=== PATIENT | female | born 1950 | race African-American/Black ===

== ENCOUNTER 2016-08-05 21:35 | Inpatient (IN) | payer MEDICARE, OTHER ==
[~2016-08-05] VITALS: Ht 165.1 cm; Wt 96.2 kg
[~2016-08-05 21:35] MED LIST: GLYB1TAB51 PO; LANTUSP SQ; LISI-363 PO; METO100T PO; NOVOLOGP2 SC
[2016-08-05 21:37] VITALS: BP 244/127; PULSE 106; RESP 16; TEMP 98.9; O2SAT 99
--- NOTE | 2016-08-05 22:40 | PD ---
Physical Exam Date Seen by Provider: Aug 05, 2016 Time Seen by Provider: 22:38 Narrative 65 yo female here for high blood sugars. BS was 482 and she forgot her insulin at home. She is visiting family here. States having neuropathy in legs 01/17 ongoing. No other symptoms. Vitals sign stable. Patient awaiting bed placement. Data Data Last Documented VS Vital Signs Date Time Temp Pulse Resp B/P Pulse Ox O2 Delivery O2 Flow Rate FiO2 08/05/16 21:37 98.9 106 16 244/127 99 Room Air [facility] Medical Record Reviewed: Yes Supervised Visit with HITESH: Gokul Us Aug 05, 2016 22:39
[2016-08-05] MEDS ORDERED: METO100T PO (22:54)
[2016-08-05] MEDS ORDERED: LISI-515 PO (22:54)
[2016-08-05] MEDS ORDERED: GLYB5TAB3 PO (22:54)
[2016-08-05] MEDS ORDERED: LANTUS2P SQ (22:54)
[2016-08-05] MEDS ORDERED: NOVOLOGP2 SQ (22:54)
[2016-08-05] MEDS ORDERED: hydrALAZINE HCL 20 MG/ML VIAL IV PUSH ONE (23:30)
[2016-08-05] MEDS ORDERED: SODIUM CHLOR 0.9% 1000 ML INJ 1,000 ML IV ONE (23:30)
[2016-08-05 23:51] LABS: BLOOD GAS VENOUS BASE EXCESS 10.2 mmol/L (-2-2); BLOOD GAS VENOUS HCO3 35 mmol/L (22-26); BLOOD GAS VENOUS O2 CONTENT 8.7 Vol % (9.0-17.0); BLOOD GAS VENOUS O2 HGB SAT 43 % (70-76); BLOOD GAS VENOUS PCO2 56 mmHg (44-48); BLOOD GAS VENOUS PO2 24 mmHg (35-40); BLOOD GAS VENOUS pH 7.41 (7.360-7.400); TEMP CORR TO 98.6
[2016-08-05 23:52] LABS: CRITICAL VALUE YES; DRAW SITE IV LINE; FIO2 21 %; OXYGEN DEVICE ROOM AIR; STAT YES
[2016-08-05 23:59] LABS: AUTOMATED NEUTROPHIL # 4.2 TH/MM3 (1.8-7.7); BASOPHIL # 0.1 TH/MM3 (0-0.2); EOSINOPHIL # 0.1 TH/MM3 (0-0.4); EOSINOPHIL % 0.9 % (0.0-4.0); HEMATOCRIT 41.2 % (35.0-46.0); HEMO FLAGS DIFF FINAL; LYMPH % 35.2 % (9.0-44.0); LYMPHOCYTE # 2.6 TH/MM3 (1.0-4.8); MEAN CELL VOLUME 88.1 FL (80.0-100.0); MEAN CORPUSCULAR HEMOGLOBIN 30.9 PG (27.0-34.0); MEAN CORPUSCULAR HGB CONC 35.1 % (32.0-36.0); MONO % 6.2 % (0.0-8.0); NEUT % 56.7 % (16.0-70.0); PLATELET COUNT 231 TH/MM3 (150-450); RED BLOOD COUNT 4.68 MIL/MM3 (4.00-5.30); RED CELL DISTRIBUTION WIDTH 14.2 % (11.6-17.2); WHITE BLOOD COUNT 7.4 TH/MM3 (4.0-11.0)
[2016-08-06] VITALS (14 sets, daily range): BP systolic 142–267; BP diastolic 71–133; PULSE 45–116; RESP 16–18; TEMP 97.9–98.1; O2SAT 96–100
[2016-08-06 00:04] LABS: BLOOD, URINE SMALL (NEG); GLUCOSE,URINE 1000 mg/dL (NEG); KETONE, URINE NEG (NEG); NITRITE,URINE NEG (NEG); PH, URINE 7.5 (5.0-8.5); SQUAMOUS EPITHELIAL CELL URINE <1 /hpf (0-5); URINE COLOR LIGHT-YELLOW (YELLW/STRAW)
[2016-08-06 00:06] LABS: COMMENT (UR) CULT NOT INDICATED; CULTURE IF INDICATED CULT NOT INDICATED
[2016-08-06 00:38] LABS: BETA-HYDROXYBUTYRATE 0.08 MMOL/L (0.00-0.39); BICARBONATE 36.1 MEQ/L (21.0-32.0)
[2016-08-06 00:46] LABS: POTASSIUM 2.4 MEQ/L (3.5-5.1)
[2016-08-06] MEDS ORDERED: POTASSIUM CHLOR 20 MEQ PREMIX 100 ML IV ONE (01:30)
[2016-08-06] MEDS ORDERED: POTASSIUM CHLORIDE 20 MEQ CONTROLLED RELEASE TAB PO ONE (01:30)
[2016-08-06] MEDS ORDERED: METOPROLOL TARTRATE 5 MG/5 ML VIAL IV PUSH ONE (04:15)
--- NOTE | 2016-08-06 05:22 | PD ---
HPI Chief Complaint: Diabetic Time Seen by Provider: 23:10 Travel History International Travel<30 days: No Contact w/Intl Traveler<30days: No Traveled to known affect area: No History of Present Illness HPI 65yo F with IDDM presents to the ED with c/o elevated blood glucose. States she left her insulin at her daughter's home in [place] and did not have it today so she check her glucose at home and it was in the 400s. Denies any fever , chest pain, sob, n/v, abdominal pain, focal weakness or numbness. PFSH Past Medical History Blood Disorders: No Cardiovascular Problems: Yes (HTN) Diabetes: Yes Patient Takes Glucophage: Yes (GLYBERIDE 2 MONTHS AGO) Diminished Hearing: Yes ([place]) Genitourinary: No Hypertension: Yes Immune Disorder: No Musculoskeletal: No Neurologic: Yes (DIABETIC NEUROPATHY) Reproductive: No Respiratory: No Immunizations Current: Yes Menopausal: Yes : 3 Miscarriage: 3 Past Surgical History Other Surgery: Yes (TENDON REPAIR TO BILAT WRISTS/ CATARACT) Social History Alcohol Use: No Tobacco Use: No (1984 1.5 PPD) Substance Use: No Allergies-Medications (Allergen,Severity, Reaction): Coded Allergies: Darvocet-N 100 (Verified Allergy, Unknown, 08/05/16) Reported Meds & Prescriptions Reported Meds & Active Scripts Active Reported Metoprolol Tartrate 100 Mg Tab 200 Mg PO DAILY Lisinopril 20 Mg Tab 20 Mg PO DAILY Lantus Inj (Insulin Glargine) 1,000 Unit/10 Ml Vial 30 Units SQ HS Novolog Inj (Insulin Aspart) 1,000 Unit/10 Ml Vial 0 SQ DIRECTED Sliding Scale as directed. Glyburide 5 Mg Tab 10 Mg PO BID Take with meals at the same time each day Review of Systems Except as stated in HPI: all other systems reviewed are Neg Physical Exam Narrative GENERAL: 65yo F not in distress. SKIN: Focused skin assessment warm/dry. HEAD: Atraumatic. Normocephalic. CARDIOVASCULAR: Regular rate and rhythm. No murmur appreciated. RESPIRATORY: No accessory muscle use. Clear to auscultation. Breath sounds equal bilaterally. GASTROINTESTINAL: Abdomen soft, non-tender, nondistended. MUSCULOSKELETAL: No obvious deformities. No clubbing. No cyanosis. No edema. NEUROLOGICAL: Awake and alert. No obvious cranial nerve deficits. Motor grossly within normal limits. Normal speech. PSYCHIATRIC: Appropriate mood and affect; insight and judgment normal. Data Data Last Documented VS Vital Signs Date Time Temp Pulse Resp B/P Pulse Ox O2 Delivery O2 Flow Rate FiO2 08/06/16 05:00 96 16 196/95 98 Room Air 08/05/16 21:37 98.9 Orders Complete Blood Count With Diff (08/05/16 23:26) Basic Metabolic Panel (Bmp) (08/05/16 23:26) Beta Hydroxybutyrate (Acetone) (08/05/16 23:26) Urinalysis - C+S If Indicated (08/05/16 23:26) Resp Blood Gas Venous (08/05/16 ) Sodium Chlor 0.9% 1000 Ml Inj (Ns 1000 M (08/05/16 23:30) Hydralazine Inj (Apresoline Inj) (08/05/16 23:30) Blood Gas Venous (Vbg) (08/05/16 23:34) Potassium Chloride (Kcl) (08/06/16 01:30) Potassium Chlor 20 Meq Premix (Kcl 20 Me (08/06/16 01:30) Potassium, Serum (K) (08/06/16 03:52) Metoprolol Tartrate Inj (Lopressor Inj) (08/06/16 04:15) Magnesium (Mg) (08/06/16 05:15) Admit Order (Ed Use Only) (08/06/16 05:17) Labs Laboratory Tests Test 08/05/16 08/05/16 08/06/16 23:40 23:42 04:00 White Blood Count 7.4 TH/MM3 Red Blood Count 4.68 MIL/MM3 Hemoglobin 14.5 GM/DL Hematocrit 41.2 % Mean Corpuscular Volume 88.1 FL Mean Corpuscular Hemoglobin 30.9 PG Mean Corpuscular Hemoglobin 35.1 % Concent Red Cell Distribution Width 14.2 % Platelet Count 231 TH/MM3 Mean Platelet Volume 9.0 FL Neutrophils (%) (Auto) 56.7 % Lymphocytes (%) (Auto) 35.2 % Monocytes (%) (Auto) 6.2 % Eosinophils (%) (Auto) 0.9 % Basophils (%) (Auto) 1.0 % Neutrophils # (Auto) 4.2 TH/MM3 Lymphocytes # (Auto) 2.6 TH/MM3 Monocytes # (Auto) 0.5 TH/MM3 Eosinophils # (Auto) 0.1 TH/MM3 Basophils # (Auto) 0.1 TH/MM3 CBC Comment DIFF FINAL Differential Comment Urine Color LIGHT-YELLOW Urine Turbidity CLEAR Urine pH 7.5 Urine Specific [place] 1.007 Urine Protein TRACE mg/dL Urine Glucose (UA) 1000 mg/dL Urine Ketones NEG mg/dL Urine Occult Blood SMALL Urine Nitrite NEG Urine Bilirubin NEG Urine Urobilinogen LESS THAN 2.0 MG/DL Urine Leukocyte Esterase NEG Urine RBC LESS THAN 1 /hpf Urine WBC LESS THAN 1 /hpf Urine Squamous Epithelial <1 /hpf Cells Microscopic Urinalysis Comment CULT NOT INDICATED Sodium Level 136 MEQ/L Potassium Level 2.4 MEQ/L 2.5 MEQ/L Chloride Level 92 MEQ/L Carbon Dioxide Level 36.1 MEQ/L Anion Gap 8 MEQ/L Blood Urea Nitrogen 18 MG/DL Creatinine 1.93 MG/DL Estimat Glomerular Filtration 32 ML/MIN Rate Random Glucose 314 MG/DL Calcium Level 9.1 MG/DL B-Hydroxybutyrate 0.08 MMOL/L Blood Gas Puncture Site IV LINE Blood Gas Patient Temperature 98.6 Venous Blood pH 7.41 Venous Blood Partial Pressure 56 mmHg CO2 Venous Blood Partial Pressure 24 mmHg O2 Venous Blood HCO3 35 mmol/L Venous Blood Oxygen Saturation 43 % Venous Blood Oxygen Content 8.7 Vol % Venous Blood Base Excess 10.2 mmol/L Oxygen Delivery Device ROOM AIR Blood Gas Inspired Oxygen 21 % Magnesium Level 1.5 MG/DL MDM Medical Decision Making Medical Screen Exam Complete: Yes Emergency Medical Condition: Yes Differential Diagnosis DKA vs. uncontrolled DM Narrative Course 65yo F with IDDM here with elevated glucose. Labs reviewed, no leukocytosis. Hypokalemia at 2.4. Replace with 60mEq KCl and 20mEq KCl IV. Glucose 314. No increased anion gap. Creatinine increased at 1.93 which is mildly increased from prior. Repeat K was only 2.5. At this point, I added magnesium level. I discussed with Liana MOLINA and admitted to Dr. Freeman's service. Pt was also hypertensive and had received hydralazine 10mg IV and lopressor 5mg IV. Diagnosis Primary Impression: Hypokalemia Admitting Information Admitting Physician Requests: Gertrudis Sofia DO Aug 06, 2016 05:22
[2016-08-06] MEDS ORDERED: POTASSIUM CHLORIDE 25 MEQ EFFERVESCENT TAB PO ONE ×2 (05:45)
[2016-08-06] MEDS ORDERED: SODIUM CHLORIDE 0.9% FLUSH 10 ML FLUSH IV FLUSH PRN ×2 (05:45→10:30)
[2016-08-06] MEDS ORDERED: NALOXONE HCL 0.4 MG/ML AMP IV PRN (05:45)
[2016-08-06] MEDS ORDERED: ONDANSETRON HCL 4 MG/2 ML VIAL IVP PRN (05:45)
[2016-08-06] MEDS ORDERED: ACETAMINOPHEN 325 MG TAB PO PRN ×2 (05:45→10:30)
[2016-08-06] MEDS ORDERED: DEXTROSE 50% IN WATER 50 ML VIAL(D50) IV PUSH PRN ×2 (05:45→14:45)
[2016-08-06] MEDS ORDERED: GLUCAGON 1 MG/ML VIAL OTHER PRN ×2 (05:45→14:45)
[2016-08-06] MEDS: SODIUM CHLOR 0.9% 1000 ML INJ 1,000 ML IV SCH ×2 (06:05→21:21)
[2016-08-06] MEDS ORDERED: SODIUM CHLORIDE 0.9% FLUSH 10 ML FLUSH IV FLUSH SCH (09:00)
[2016-08-06] MEDS: METOPROLOL TARTRATE 100 MG TAB PO SCH (09:03)
[2016-08-06] MEDS: cloNIDine HCL 0.1 MG TAB PO PRN ×2 (09:03→19:16)
[2016-08-06] MEDS: LISINOPRIL 20 MG TAB PO SCH (09:03)
[2016-08-06] MEDS ORDERED: POTASSIUM CHLORIDE 25 MEQ EFFERVESCENT TAB PO SCH (10:00)
[2016-08-06] MEDS ORDERED: ZOLPIDEM TARTRATE 5 MG TAB PO PRN (10:30)
--- NOTE | 2016-08-06 12:09 | MH ---
DATE OF ADMISSION: 08/06/2016 ATTENDING PHYSICIAN: Chelo Freeman MD. CHIEF COMPLAINT: Elevated blood sugar. HISTORY OF PRESENT ILLNESS: The patient is a 65-year-old -[place] female with a known history of insulin-dependent diabetes mellitus who presents to the emergency room with complaints of elevated blood glucose. As per the patient, she has been travelling from [place] and she left her insulin at her daughter's home and she did not take her insulin today and when she checked her glucose at home, it was 480 so she presented to the emergency room. The patient denies any fever, any chest pain, no shortness of breath, nausea or vomiting or diarrhea. No abdominal pain. No focal weakness or numbness. In the emergency room, the labs done showed a potassium of 2.4 and a random blood glucose of 314. Because of her low potassium, the patient has been admitted for further evaluation and management. PAST MEDICAL HISTORY: 1. Diabetes mellitus. 2. Hypertension. 3. Hyperlipidemia. 4. Neuropathy. PAST SURGICAL HISTORY: 1. Tendon repair to bilateral wrists. 2. Cataract surgery. SOCIAL HISTORY: Quit smoking in 1984; used to smoke 1.5 packs per day for about five to ten years. Denies any alcohol or substance use. FAMILY HISTORY: Significant for hypertension and unknown autoimmune disorder in the mother and cancer in the sister. ALLERGIES: 1. DARVOCET. CURRENT MEDICATIONS: 1. Metoprolol tartrate 200 milligrams p.o. daily. 2. Lisinopril 20 milligrams p.o. daily. 3. Lantus insulin 30 units subcutaneous at bedtime. 4. NovoLog insulin sliding scale. 5. Glyburide 10 milligrams p.o. twice a day. REVIEW OF SYSTEMS: GENERAL: No acute distress. CONSTITUTIONAL: No weakness. CARDIOVASCULAR: No chest pain or palpitations. RESPIRATORY: No shortness of breath or wheezing. GASTROINTESTINAL: No abdominal pain, nausea or vomiting or diarrhea. NEUROLOGIC: No cranial nerve deficits. PSYCHIATRIC: No depression or anxiety. ENDOCRINE: Positive for diabetes mellitus but denies any polyuria or polydipsia. PHYSICAL EXAMINATION: VITAL SIGNS: Blood pressure is 142/101, temperature is 98.9, pulse is 92, respirations are 16, pulse oximetry is 99% on room air. GENERAL: A 65-year-old -[place] female who is lying in bed in no acute distress. HEAD: Head is atraumatic and normocephalic. Pupils equal, round and reactive to light and accommodation. Extraocular movements are intact. Oral mucosa is moist. NECK: The neck is supple. No jugular venous distention. No lymphadenopathy. Trachea is midline. CARDIOVASCULAR: S1 and S2 heard. Regular rate and rhythm. No murmur. No gallop. RESPIRATORY: Lungs are clear to auscultation bilaterally. No rhonchi or wheezes. ABDOMEN: The abdomen is soft, nontender and nondistended. Bowel sounds heard in all four quadrants. MUSCULOSKELETAL: No cyanosis, congestion or edema. NEUROLOGICAL: Cranial nerves II through XII are grossly intact. The patient is awake and alert x4. PSYCHIATRIC: Appropriate mood and affect. DIAGNOSTIC STUDIES: Labs done showed a white blood cell count of 7.4, hemoglobin 14.5, hematocrit 41.2, platelets are 231,000. The urinalysis is clear. Sodium is 136, potassium 2.4, chloride is 92, bicarbonate is 36.1, BUN 18, creatinine 1.92, random blood glucose is 314. DIAGNOSTIC IMPRESSION: 1. Hyperglycemia. 2. Hypokalemia. 3. Chronic kidney disease stage III. 4. Hypertension. 5. Hyperlipidemia. 6. Neuropathy. 7. History of insulin-dependent diabetes mellitus. PLAN: 1. Will admit the patient under services of Dr. Freeman. 2. Will start the patient on continuous telemetry monitoring. 3. The patient has received 60 milliequivalents of potassium in the emergency room. The repeat potassium was 2.5. Will replace the potassium and monitor closely. 4. Will start the patient on insulin. 5. Will continue the home medications as appropriate. 6. Will monitor the blood pressure as well as blood glucose q a.c. and at bedtime. 7. GI prophylaxis with proton pump inhibitor. 8. DVT prophylaxis with heparin. 9. Monitor Labs/vitals closely. 10. Will monitor the patient closely during the hospital stay. Further management depends upon the hospital course. The patient has presented with severe hypokalemia and has received 60 milliequivalents of IV potassium in the emergency room and still the potassium is only 2.5. The patient will need close monitoring with continuous telemetry monitoring to rule out any cardiac abnormalities. Will need replacement of potassium and also further monitoring of magnesium as well as phosphorus levels. Will need close monitoring of her sugars. Meets an inpatient criteria. Needs an inpatient of minimum two midnights. CLEVE
[2016-08-06] MEDS: glyBURIDE 5 MG TAB PO SCH ×2 (12:13→21:11)
[2016-08-06] MEDS: HEPARIN SODIUM - SQ 10,000 UNITS/ML VIAL SQ SCH ×2 (12:14→23:00)
[2016-08-06] MEDS: DOCUSATE SODIUM 100 MG CAP PO SCH ×2 (12:21→21:11)
[2016-08-06 14:23] LABS: BICARBONATE 28.8 MEQ/L (21.0-32.0); POTASSIUM 3.9 MEQ/L (3.5-5.1)
[2016-08-06] MEDS: MEDIUM DOSE INSULIN NOVOLOG SUPPLEMENTAL SCALE SQ SCH ×2 (18:22→21:12)
[2016-08-06] MEDS ORDERED: METO200T3 PO (18:29)
[2016-08-06] MEDS ORDERED: ISOS60TA PO (18:29)
[2016-08-06] MEDS ORDERED: HYDR25TA5 PO (18:29)
[2016-08-06] MEDS ORDERED: AMLO10TA2 PO (18:29)
[2016-08-06] MEDS ORDERED: GABA300C5 PO (18:29)
[2016-08-06] MEDS ORDERED: LISI-515 PO (18:29)
[2016-08-06] MEDS: SODIUM CHLORIDE 0.9% FLUSH 10 ML FLUSH IV FLUSH SCH (21:00)
[2016-08-06] MEDS: PANTOPRAZOLE SOD 40 MG DELAYED RELEASE TAB PO SCH (21:11)
[2016-08-06] MEDS: INSULIN DETEMIR 100 UNITS/ML VIAL SQ SCH (21:12)
[2016-08-07] VITALS (8 sets, daily range): BP systolic 143–212; BP diastolic 71–105; PULSE 68–82; RESP 16–20; TEMP 97.9–98.4; O2SAT 96–99
[2016-08-07] MEDS: cloNIDine HCL 0.1 MG TAB PO PRN ×3 (01:23→22:00)
[2016-08-07] MEDS: MEDIUM DOSE INSULIN NOVOLOG SUPPLEMENTAL SCALE SQ SCH ×4 (06:05→22:00)
[2016-08-07 06:47] LABS: AUTOMATED NEUTROPHIL # 2.8 TH/MM3 (1.8-7.7); BASOPHIL % 0.7 % (0.0-2.0); EOSINOPHIL # 0.1 TH/MM3 (0-0.4); EOSINOPHIL % 1.4 % (0.0-4.0); HEMATOCRIT 33.7 % (35.0-46.0); HEMO FLAGS DIFF FINAL; LYMPH % 41.9 % (9.0-44.0); LYMPHOCYTE # 2.4 TH/MM3 (1.0-4.8); MEAN CORPUSCULAR HEMOGLOBIN 30.4 PG (27.0-34.0); MEAN CORPUSCULAR HGB CONC 34.2 % (32.0-36.0); MONO % 7.3 % (0.0-8.0); NEUT % 48.7 % (16.0-70.0); PLATELET COUNT 183 TH/MM3 (150-450); RED BLOOD COUNT 3.78 MIL/MM3 (4.00-5.30); RED CELL DISTRIBUTION WIDTH 14.1 % (11.6-17.2); WHITE BLOOD COUNT 5.8 TH/MM3 (4.0-11.0)
[2016-08-07 07:08] LABS: BICARBONATE 29.3 MEQ/L (21.0-32.0)
[2016-08-07 07:15] LABS: POTASSIUM 2.7 MEQ/L (3.5-5.1)
[2016-08-07] MEDS: DOCUSATE SODIUM 100 MG CAP PO SCH ×2 (09:00→21:00)
[2016-08-07] MEDS ORDERED: SODIUM CHLOR 0.9% IV ONE (09:00)
[2016-08-07] MEDS ORDERED: POTASSIUM CHLORIDE IV ONE (09:00)
[2016-08-07] MEDS: SODIUM CHLORIDE 0.9% FLUSH 10 ML FLUSH IV FLUSH SCH ×2 (09:00→21:00)
[2016-08-07] MEDS: PANTOPRAZOLE SOD 40 MG DELAYED RELEASE TAB PO SCH (09:16)
[2016-08-07] MEDS: glyBURIDE 5 MG TAB PO SCH ×2 (09:16→22:00)
[2016-08-07] MEDS: LISINOPRIL 20 MG TAB PO SCH (09:16)
[2016-08-07] MEDS: METOPROLOL TARTRATE 100 MG TAB PO SCH (09:16)
--- NOTE | 2016-08-07 09:46 | HHI.PR ---
Subjective Remarks 65yr old female seen and examined today. No CP/SOB/NVD. Has her home meds now: on HCTZ/amlodine along with metoprolol/lisinopril for BP but not any potassium supplements BP high. No CP/SOB/NVD/headache. Objective Objective Results - Vital Signs Date Time Temp Pulse Resp B/P Pulse Ox O2 Delivery O2 Flow Rate FiO2 08/07/16 09:01 97.9 82 16 212/105 99 Manual Cuff/Auscultation 08/07/16 04:00 98.0 70 20 169/81 96 08/07/16 00:00 98.1 78 18 170/90 96 08/06/16 21:00 78 08/06/16 20:00 98.1 82 17 177/83 97 08/06/16 18:59 83 08/06/16 16:45 82 18 180/83 100 08/06/16 12:25 97.9 45 18 157/71 96 I/O 08/06/16 08/06/16 08/06/16 08/07/16 08/07/16 08/07/16 07:00 15:00 23:00 07:00 15:00 23:00 Intake Total 480 ml Balance 480 ml Intake Oral 480 ml # Voids 2 Result Diagram: 08/07/16 0600 08/07/16 0600 Other Results Laboratory Tests Test 08/06/16 08/07/16 13:30 06:00 Sodium Level 140 139 Potassium Level 3.9 2.7 Chloride Level 101 102 Carbon Dioxide Level 28.8 29.3 Anion Gap 10 8 Blood Urea Nitrogen 14 21 Creatinine 1.65 1.77 Estimat Glomerular Filtration 38 35 Rate Random Glucose 247 242 Calcium Level 8.6 8.3 White Blood Count 5.8 Red Blood Count 3.78 Hemoglobin 11.5 Hematocrit 33.7 Mean Corpuscular Volume 89.0 Mean Corpuscular Hemoglobin 30.4 Mean Corpuscular Hemoglobin 34.2 Concent Red Cell Distribution Width 14.1 Platelet Count 183 Mean Platelet Volume 9.2 Neutrophils (%) (Auto) 48.7 Lymphocytes (%) (Auto) 41.9 Monocytes (%) (Auto) 7.3 Eosinophils (%) (Auto) 1.4 Basophils (%) (Auto) 0.7 Neutrophils # (Auto) 2.8 Lymphocytes # (Auto) 2.4 Monocytes # (Auto) 0.4 Eosinophils # (Auto) 0.1 Basophils # (Auto) 0.0 CBC Comment DIFF FINAL Differential Comment ROS General: No: Fatigue, Weakness, Other HEENT: No: Sore Throat, Dysphagia, Other Cardiac: No: Chest Pain, Edema, Palpitations, Other Pulmonary: No: Cough, SOB, Wheezing, Other GI: No: Abdominal Pain, BM, Diarrhea, N/V, Other /[employer]: No: Dysuria, Urgency, Other Neuro/MS: No: Lightheaded, Confusion, Other Psych: No: Anxiety, Depression, Other Skin: No: Itching, Rash, Other Physical Exam Physical Exam PHYSICAL EXAMINATION GENERAL: This is a well-developed, well-nourished female who appears to be in no acute distress. She is alert and awake. HEAD: Normocephalic without any lesion or mass noted. EYES: Perrla, Normal eye movement,. OROPHARYNGEAL: Oropharynx without erythema or edema. MOUTH/THROAT: Buccal mucosa is moist. NECK: Supple. CARDIAC: Regular rhythm, regular rate, S1 and S2 are heard. LUNGS: Clear to auscultation bilaterally. ABDOMEN: Soft, nontender, no organomegaly or masses. Bowel sounds are heard in all four quadrants. No rebound. No guarding. EXTREMITIES: No CCE. NEUROLOGICAL: Patient mood and affect appropriate. SKIN:Warm and moist PSYCH: Mood and affect appropriate A/P Assessment and Plan Assessment/plan: 1. Hyperglycemia. 2. Hypokalemia. 3. Chronic kidney disease stage III. 4. Hypertension. 5. Hyperlipidemia. 6. Neuropathy. 7. History of insulin-dependent diabetes mellitus. PLAN: On continuous telemetry. Replace potassium: 60meq IV . Recheck after replacement. FSBG qac/hs. Lantus/SSI. Restart HCTZ/amlodipine for HTN. Continue rest of home meds As appropriate. Monitor BP closely. GI prophylaxis with proton pump inhibitor. DVT prophylaxis with heparin. Will recheck potassium/BP later today: if wnl will consider dc to home. DW with patient/RN. Chelo Freeman MD Aug 07, 2016 09:46
[2016-08-07] MEDS: HYDROCHLOROTHIAZIDE 25 MG TAB PO SCH (10:50)
[2016-08-07] MEDS: HEPARIN SODIUM - SQ 10,000 UNITS/ML VIAL SQ SCH ×2 (11:00→22:01)
[2016-08-07] MEDS: INSULIN DETEMIR 100 UNITS/ML VIAL SQ SCH (22:00)
[2016-08-08] VITALS (10 sets, daily range): BP systolic 162–196; BP diastolic 79–96; PULSE 61–71; RESP 16–20; TEMP 97.1–98; O2SAT 96–100
[2016-08-08] MEDS: cloNIDine HCL 0.1 MG TAB PO PRN (04:14)
[2016-08-08] MEDS: MEDIUM DOSE INSULIN NOVOLOG SUPPLEMENTAL SCALE SQ SCH ×4 (06:18→21:47)
[2016-08-08] MEDS: METOPROLOL TARTRATE 100 MG TAB PO SCH (09:12)
[2016-08-08] MEDS: HYDROCHLOROTHIAZIDE 25 MG TAB PO SCH (09:12)
[2016-08-08] MEDS: DOCUSATE SODIUM 100 MG CAP PO SCH ×2 (09:12→21:44)
[2016-08-08] MEDS: glyBURIDE 5 MG TAB PO SCH ×2 (09:12→21:44)
[2016-08-08] MEDS: SODIUM CHLORIDE 0.9% FLUSH 10 ML FLUSH IV FLUSH SCH ×2 (09:12→21:45)
[2016-08-08] MEDS: PANTOPRAZOLE SOD 40 MG DELAYED RELEASE TAB PO SCH (09:12)
[2016-08-08] MEDS: LISINOPRIL 20 MG TAB PO SCH (09:12)
[2016-08-08] MEDS: HEPARIN SODIUM - SQ 10,000 UNITS/ML VIAL SQ SCH ×2 (11:00→21:48)
--- NOTE | 2016-08-08 12:40 | HHI.PR ---
Subjective Remarks Alert resting in bed Afebrile Appetite fair No family present (Destiny Hannah) Objective Objective Results - Vital Signs Date Time Temp Pulse Resp B/P Pulse Ox O2 Delivery O2 Flow Rate FiO2 08/08/16 10:10 61 08/08/16 09:10 97.1 69 16 171/80 100 08/08/16 04:10 97.7 69 20 186/86 98 08/08/16 00:53 98.0 68 18 178/86 99 08/07/16 20:11 98.4 71 18 193/93 96 08/07/16 20:00 71 08/07/16 15:50 97.9 76 18 143/73 98 08/07/16 15:44 68 I/O 08/07/16 08/07/16 08/07/16 08/08/16 08/08/16 08/08/16 07:00 15:00 23:00 07:00 15:00 23:00 Intake Total 480 ml 360 ml 1489 ml Balance 480 ml 360 ml 1489 ml Intake Oral 480 ml 360 ml 600 ml IV Total 889 ml # Voids 2 1 2 (Destiny Hannah) Result Diagram: 08/07/16 0600 08/07/16 1642 ROS General: Weakness (generalized), Other (10 point ROS done positives noted generalized weakness and occasional cough, BM 2 days ago otherwise systems negative or unremarkable) Cardiac: Other Pulmonary: Cough (occasional) (Destiny Hannah) Physical Exam Physical Exam PHYSICAL EXAMINATION GENERAL: This is a well-developed, well-nourished female who appears to be in no acute distress. She is alert and awake, HEAD: Normocephalic without any lesion or mass noted. Facial features appear symmetric. OROPHARYNGEAL: Oropharynx without erythema or edema. NECK: Supple. No nuchal rigidity or lymphadenopathy. Trachea midline without deviation. CARDIAC: Regular rhythm, regular rate, S1 and S2 are heard. LUNGS: Clear to auscultation bilaterally. no wheeze, no rhonchi ABDOMEN: Soft, nontender, no organomegaly or masses. Bowel sounds are heard in all four quadrants. EXTREMITIES: no edema. Pulses equal bilateral. NEUROLOGICAL: Patient mood and affect appropriate. No focal deficit SKIN:Warm and moist Objective Remarks No chest pain no shortness of breath (Destiny Hannah) A/P Assessment and Plan Assessment/plan: 1. Hyperglycemia. 2. Hypokalemia. 3. Chronic kidney disease stage III. 4. Hypertension. 5. Hyperlipidemia. 6. Neuropathy. 7. History of insulin-dependent diabetes mellitus. PLAN: Vital signs reviewed, afebrile, manual systolic blood pressure still ranging in the 180s Hypokalemia telemetry. Replace potassium: 60meq IV . , Infusion lasted until approximately 0600. Will recheck K level today, if less than 3.5, will supplement extra dose by mouth Recheck BMP in the morning Diabetes mellitus type 2 FSBG qac/hs. Lantus/SSI. Hypertension systolic uncontrolled, increased dose of clonidine 0.2 by mouth when necessary. Restart HCTZ/amlodipine for HTN. Continue rest of home meds As appropriate. GI prophylaxis with proton pump inhibitor. DVT prophylaxis with heparin. DW with patient/RN. Discussed with patient Discussed with Dr. Carcamo, seen on his behalf Discussed With: Nurse, Family (pt.), Other (dr. carcamo, seen on his behalf) ( Destiny Hannha) Assessment and Plan pt is seen & examined d/w PT d/w Destiny difficult to control BP suspect sec HTN d/t CKD r/o Hyperaldosteronism cont BB/CCB Inc dose ROHIT-I d/c HCTZ add Hydralazine prn Clonidine obtain renal consult replace Kcl/mag will f/u (Belem Carcamo MD) Destiny Hannah August 08, 2016 12:40 Belem Carcamo MD August 08, 2016 17:29
[2016-08-08] MEDS ORDERED: POTASSIUM CHLORIDE 25 MEQ EFFERVESCENT TAB PO ONE (12:45)
[2016-08-08] MEDS: cloNIDine HCL 0.2 MG TAB PO PRN (14:43)
[2016-08-08] MEDS ORDERED: POTASSIUM CHLORIDE 10 MEQ CONTROLLED RELEASE TAB PO ONE (17:30)
[2016-08-08] MEDS ORDERED: MAGNESIUM SULFATE 1 GM PREMIX 100 ML IV ONE (18:00)
--- NOTE | 2016-08-08 18:17 | PD.CONS ---
HPI Service Nephrology Consult Requested By Dr. Carcamo Reason for Consult Uncontrolled hypertension, hypokalemia, CKD Primary Care Physician Vicente Caban MD History of Present Illness 65 Year old Black female with diabetes, hypertension started in her 40's, she was out of her insulin and BG was 480 she came in found to have potassium of 2.4 with uncontrolled hypertension, she also has CKD with failing kidneys, she gives a strong family history of hypertension, her mother and sister has hypertension. She denies Abdominal pain, dizziness, sultana. Review of Systems Constitutional: COMPLAINS OF: Fatigue Past Family Social History Allergies: Coded Allergies: Darvocet-N 100 (Verified Allergy, Unknown, 08/05/16) Past Medical History DM Hypertension CKD Stage 3 Hypokalemia Past Surgical History Cataract Tendon release in both wrist Reported Medications Reported Meds & Active Scripts Active Reported Metoprolol Succinate ER 24 HR (Metoprolol Succinate) 200 Mg Tab 200 Mg PO DAILY Lisinopril 20 Mg Tab 20 Mg PO BID Isosorbide Mononitrate ER (Isosorbide Mononitrate) 60 Mg Tab 60 Mg PO DAILY Hydrochlorothiazide 25 Mg Tab 25 Mg PO DAILY Gabapentin 300 Mg Cap 300 Mg PO QID Amlodipine (Amlodipine Besylate) 10 Mg Tab 10 Mg PO DAILY Metoprolol Tartrate 100 Mg Tab 200 Mg PO DAILY Lisinopril 20 Mg Tab 20 Mg PO DAILY Lantus Inj (Insulin Glargine) 1,000 Unit/10 Ml Vial 30 Units SQ HS Novolog Inj (Insulin Aspart) 1,000 Unit/10 Ml Vial 0 SQ DIRECTED Sliding Scale as directed. Glyburide 5 Mg Tab 10 Mg PO BID Take with meals at the same time each day Active Ordered Medications Current Medications Medications (Trade) Dose Ordered Sig/Khushbu Route Start Time Stop Time Status Last Admin (Zofran Inj) 4 mg Q6H PRN IVP 08/06/16 05:45 (Narcan Inj) 0.4 mg UNSCH PRN IV 08/06/16 05:45 (Diabeta) 10 mg BID PO 08/06/16 09:00 08/08/16 09:12 (Lopressor) 200 mg DAILY PO 08/06/16 09:00 08/08/16 09:12 (NS Flush) 2 ml UNSCH PRN IV FLUSH 08/06/16 10:30 (NS Flush) 2 ml BID IV FLUSH 08/06/16 21:00 08/08/16 09:12 (Tylenol) 650 mg Q4H PRN PO 08/06/16 10:30 (Colace) 100 mg Q12HR PO 08/06/16 10:45 08/08/16 09:12 (Ambien) 5 mg HS PRN PO 08/06/16 10:30 (Heparin Inj) 5,000 units Q12H SQ 08/06/16 11:00 08/07/16 22:01 (Levemir Inj) 30 units HS SQ 08/06/16 21:00 08/07/16 22:00 (D50w (Vial) Inj) 25 ml UNSCH PRN IV PUSH 08/06/16 14:45 (Glucagon Inj) 1 mg UNSCH PRN OTHER 08/06/16 14:45 (Protonix) 40 mg DAILY PO 08/06/16 19:30 08/08/16 09:12 (Norvasc) 10 mg DAILY PO 08/07/16 10:00 08/08/16 09:12 (Catapres) 0.2 mg Q6H PRN PO 08/08/16 14:30 08/08/16 14:43 (Prinivil) 40 mg DAILY PO 08/09/16 09:00 Hydralazine HCl 25 mg 25 mg Q8HR PO 08/08/16 22:00 (Magnesium Sulfate 1 Gm Premix) 100 ml @ 100 mls/hr ONCE ONCE IV 08/08/16 18:00 08/08/16 18:59 Family History sister hypertensive, mother had Hypertension, Social History smoked long time ago denies ETOH Physical Exam Vital Signs Vital Signs Date Time Temp Pulse Resp B/P Pulse Ox O2 Delivery O2 Flow Rate FiO2 08/08/16 17:50 188/90 Automatic Cuff 08/08/16 17:39 98.0 71 20 190/92 96 08/08/16 13:09 186/90 08/08/16 12:53 68 20 196/96 99 08/08/16 10:10 61 08/08/16 09:10 97.1 69 16 171/80 100 08/08/16 04:10 97.7 69 20 186/86 98 08/08/16 00:53 98.0 68 18 178/86 99 08/07/16 20:11 98.4 71 18 193/93 96 08/07/16 20:00 71 Physical Exam GENERAL: Well-nourished, well-developed patient. SKIN: Warm and dry. HEAD: Normocephalic. EYES: No scleral icterus. No injection or drainage. NECK: Supple, trachea midline. No JVD or lymphadenopathy. CARDIOVASCULAR: Regular rate and rhythm without murmurs, gallops, or rubs. RESPIRATORY: Breath sounds equal bilaterally. No accessory muscle use. GASTROINTESTINAL: Abdomen soft, non-tender, nondistended. EXTREMITIES: No cyanosis, or edema. NEUROLOGICAL: Awake, alert, and oriented x 3. Non-focal. Result Diagram: 08/07/16 0600 08/07/16 1642 Assessment and Plan Problem List: (1) Hypokalemia Plan: This likely was result of Thiazide diuretic K was low and she was alkalotic I will do screening for Hyperaldosteronism Her K remains low, will check urine electrolytes Aldosterone, renin,Metanephrine add Aldactone in am low dose (2) CKD (chronic kidney disease) stage 3, GFR 30-59 ml/min Plan: US Kidneys was ordered (3) Diabetes Plan: monitor BG (4) Labile essential hypertension Plan: can adjust medications add spironolactone Problem Qualifiers (1) Diabetes: Rosie De León MD August 08, 2016 18:17
--- NOTE | 2016-08-08 19:16 | RADRPT ---
EXAM DATE/TIME: 08/08/2016 18:41 [facility] COMPARISON: No previous studies available for comparison. INDICATIONS : Increased BUN/creatinine. MEDICAL HISTORY : Arthritis. Diabetic neuropathy feet and hands. CVA. Syncope. Migraines. HTN. Dyspnea. GERD. Diabe jacob. SURGICAL HISTORY : Right cataract with lens placement. Tendon repair to bilateral wrists. ENCOUNTER: Initial ACUITY: 1 day PAIN SCORE: 0/10 LOCATION: Bilateral flank MEASUREMENTS: RIGHT KIDNEY: 9.8 x 5.1 x 5.2 cm LEFT KIDNEY: 11.2 x 5.8 x 6.3 cm FINDINGS: RIGHT KIDNEY: Slightly smaller than the left and has mild, patchy cortical thinning/scarring. LEFT KIDNEY: Renal cortex is normal in thickness and echotexture. No hydronephrosis, stone, or mass. BLADDER: Within normal limits given the degree of distension. Trace perihepatic ascites seen, nonspecific. CONCLUSION: 1. No evidence of obstructive uropathy or other acute abnormality. 2. Slightly small right kidney with patchy cortical thinning/scarring. Left kidney within normal limi ts. 3. Trace ascites, etiology uncertain. Jaden Monson MD on August 08, 2016 at 19:12 Board Certified Radiologist. This report was verified electronically.
[2016-08-08] MEDS: hydrALAZINE HCL 25 MG TAB PO SCH (21:44)
[2016-08-08] MEDS: INSULIN DETEMIR 100 UNITS/ML VIAL SQ SCH (21:48)
[2016-08-09] VITALS (8 sets, daily range): BP systolic 111–188; BP diastolic 58–91; PULSE 64–76; RESP 16–18; TEMP 96.1–97.2; O2SAT 96–100
[2016-08-09] MEDS: cloNIDine HCL 0.2 MG TAB PO PRN (00:18)
[2016-08-09] MEDS: hydrALAZINE HCL 25 MG TAB PO SCH ×3 (06:31→22:00)
[2016-08-09] MEDS: MEDIUM DOSE INSULIN NOVOLOG SUPPLEMENTAL SCALE SQ SCH ×4 (06:31→21:56)
[2016-08-09 08:55] LABS: BICARBONATE 31.7 MEQ/L (21.0-32.0); MAGNESIUM 2.2 MG/DL (1.5-2.5)
--- NOTE | 2016-08-09 08:55 | HHI.PR ---
Subjective Remarks Alert resting in bed Afebrile Appetite fair No family present (Destiny Hannah) Objective Objective Results - Vital Signs Date Time Temp Pulse Resp B/P Pulse Ox O2 Delivery O2 Flow Rate FiO2 08/09/16 08:30 96.4 65 16 132/79 100 08/09/16 03:30 96.1 64 16 164/79 98 08/09/16 00:00 96.6 67 16 188/91 99 08/08/16 21:13 99 21 08/08/16 20:00 97.8 70 18 162/79 100 08/08/16 18:49 Room Air 08/08/16 17:50 188/90 Automatic Cuff 08/08/16 17:39 98.0 71 20 190/92 96 08/08/16 13:09 186/90 08/08/16 12:53 68 20 196/96 99 08/08/16 10:10 61 08/08/16 09:10 97.1 69 16 171/80 100 I/O 08/08/16 08/08/16 08/08/16 08/09/16 08/09/16 08/09/16 07:00 15:00 23:00 07:00 15:00 23:00 Intake Total 1489 ml 960 ml 240 ml Balance 1489 ml 960 ml 240 ml Intake Oral 600 ml 960 ml 240 ml IV Total 889 ml # Voids 2 3 3 # Bowel Movements 0 0 (Destiny Hannah) Result Diagram: 08/07/16 0600 08/08/16 1820 Other Results Last Impressions Renal Ultrasound 08/08/16 0000 Signed Impressions: Service Date/Time: Monday, August 08, 2016 18:41 - CONCLUSION: 1. No evidence of obstructive uropathy or other acute abnormality. 2. Slightly small right kidney with patchy cortical thinning/scarring. Left kidney within normal limits. 3. Trace ascites, etiology uncertain. Jaden Monson MD (Destiny Hannah) ROS General: Other (10 point ROS done, systems reviewed for any positives otherwise systems unremarkable) GI: BM (1 since admission) Neuro/MS: Other (BP monitoring with new medications normal range no headache) ( Destiny Hannah) Physical Exam Physical Exam PHYSICAL EXAMINATION GENERAL: This is a well-developed, well-nourished female who appears to be in no acute distress. She is alert and awake, HEAD: Normocephalic without any lesion or mass noted. Facial features appear symmetric. OROPHARYNGEAL: Oropharynx without erythema or edema. NECK: Supple. No nuchal rigidity or lymphadenopathy. Trachea midline without deviation. CARDIAC: Regular rhythm, regular rate, S1 and S2 are heard. LUNGS: Clear to auscultation bilaterally, no acute shortness of breath ABDOMEN: Soft, nontender, no organomegaly or masses. Bowel sounds are heard in all four quadrants. No rebound. No guarding. EXTREMITIES: no edema. Pulses equal bilateral. NEUROLOGICAL: Patient mood and affect appropriate. No focal deficit SKIN:Warm and moist Objective Remarks I'm feeling okay today (Destiny Hannah) A/P Assessment and Plan Assessment/plan: 1. Hyperglycemia. 2. Hypokalemia. 3. Chronic kidney disease stage III. 4. Hypertension. 5. Hyperlipidemia. 6. Neuropathy. 7. History of insulin-dependent diabetes mellitus. PLAN: Vital signs reviewed, afebrile, BP monitoring trend with assistance of manual pressures too for accuracy Hypokalemia telemetry. Low again today on labs .Replace potassium: 60meq IV total. , And by mouth dose. Nephrology following patient now. Need review of persistent hypokalemia Recheck BMP in the am Diabetes mellitus type 2 FSBG qac/hs. Lantus/SSI. Hypertension systolic uncontrolled, increased dose of clonidine 0.2 by mouth when necessary. Restart HCTZ/amlodipine for HTN. Appreciate nephrology consult. Added spironolactone, systolic in the 130s this a.m. normal trends Chronic kidney disease stage III, appreciate nephrology input for BP and hypokalemia. Small right kidney noted on ultrasound. Will follow expert opinion on patient needs and discharge planning GI prophylaxis with proton pump inhibitor. DVT prophylaxis with heparin. DW with patient/RN. Discussed with patient Discussed with Dr. Carcamo, seen on his behalf Discussed With: Nurse, Family (pt.), Other (dr. carcamo, seen on his behalf) ( Destiny Hannah) Assessment and Plan pt is seen & examined d/w PT d/w destiny BP better K remained low renal input appreciated / Hormonal eval [p] agree w above will f/u (Belem Carcamo MD) Destiny Hannah August 09, 2016 08:55 Belem Carcamo MD August 09, 2016 13:27
[2016-08-09 09:02] LABS: POTASSIUM 2.6 MEQ/L (3.5-5.1)
[2016-08-09] MEDS ORDERED: POTASSIUM CHLOR 20 MEQ PREMIX 100 ML IV ONE (09:30)
--- NOTE | 2016-08-09 09:37 | HHI.NPPN ---
Subjective History of Present Illness 65 year old BF with Hypokalemia HTN.DM, CKD Review of Systems General Constitutional: Fatigue Objective Data Data 08/08/16 08/09/16 19:00 07:00 Intake Total 720 ml 480 ml Balance 720 ml 480 ml Intake Oral 720 ml 480 ml # Voids 2 4 # Bowel Movements 0 Vital Signs Date Time Temp Pulse Resp B/P Pulse Ox O2 Delivery O2 Flow Rate FiO2 08/09/16 08:30 96.4 65 16 132/79 100 08/09/16 03:30 96.1 64 16 164/79 98 08/09/16 00:00 96.6 67 16 188/91 99 08/08/16 21:13 99 21 08/08/16 20:00 97.8 70 18 162/79 100 08/08/16 18:49 Room Air 08/08/16 17:50 188/90 Automatic Cuff 08/08/16 17:39 98.0 71 20 190/92 96 08/08/16 13:09 186/90 08/08/16 12:53 68 20 196/96 99 08/08/16 10:10 61 -: 08/07/16 0600 08/09/16 0757 Physical Exam General Appearance: Well Developed, Well Nourished Neck Neck Exam: Neck Supple Pulmonary Resp Exam: Clear Bilaterally, Breath Sounds Equal Cardiology CV Exam: Regular, Normal Sinus Rhythm Gastrointestinal/Abdomen GI Exam: Soft, Non-Tender Integumentary Skin Exam: Clear Extremeties Extremities Exam: No Edema Neurologic Neuro Exam: Alert Assessment/Plan Problem List: (1) Hypokalemia Plan: This likely was result of Thiazide diuretic or secondary cause Adrenal Hyperplasia/functional adenoma needs to be ruled out/Ascites on US kidney, will order CT of abdomen and Pelvis WO IV contrast oral contrast can be used K was low and she was alkalotic, replace as ordered 80 meq and recheck K at 1 Pm screening for Hyperaldosteronism Her K remains low, will check urine electrolytes Aldosterone, renin,Metanephrine added Aldactone (2) CKD (chronic kidney disease) stage 3, GFR 30-59 ml/min Plan: US Kidneys was ordered (3) Diabetes Plan: monitor BG (4) Labile essential hypertension Plan: can adjust medications add spironolactone Problem Qualifiers (1) Diabetes: Rosie De León MD August 09, 2016 09:37
[2016-08-09] MEDS ORDERED: POTASSIUM CHLORIDE 20 MEQ PWD PACKET PO ONE (10:00)
[2016-08-09] MEDS: glyBURIDE 5 MG TAB PO SCH ×2 (10:09→21:00)
[2016-08-09] MEDS: DOCUSATE SODIUM 100 MG CAP PO SCH ×2 (10:09→22:01)
[2016-08-09] MEDS: PANTOPRAZOLE SOD 40 MG DELAYED RELEASE TAB PO SCH (10:09)
[2016-08-09] MEDS: SODIUM CHLORIDE 0.9% FLUSH 10 ML FLUSH IV FLUSH SCH ×2 (10:10→22:03)
[2016-08-09] MEDS: METOPROLOL TARTRATE 100 MG TAB PO SCH (10:10)
[2016-08-09] MEDS: SPIRONOLACTONE 25 MG TAB PO SCH (10:10)
[2016-08-09] MEDS: LISINOPRIL 20 MG TAB PO SCH (10:10)
[2016-08-09] MEDS ORDERED: POTASSIUM CHLORIDE 10 MEQ CONTROLLED RELEASE TAB PO ONE (11:00)
[2016-08-09] MEDS: POTASSIUM CHLOR 20 MEQ PREMIX 100 ML IV SCH ×3 (11:20→14:16)
[2016-08-09] MEDS: HEPARIN SODIUM - SQ 10,000 UNITS/ML VIAL SQ SCH ×2 (11:21→22:04)
[2016-08-09] MEDS ORDERED: DIATRIZOATE MEGLUM/DIATRIZOATE SOD 9 ML CUP PO ONE (12:45)
--- NOTE | 2016-08-09 17:54 | RADRPT ---
EXAM DATE/TIME: 08/09/2016 17:36 [facility] COMPARISON: No previous studies available for comparison. INDICATIONS : Evaluate for ascites. ORAL CONTRAST: Prescribed oral contrast ingested. RADIATION DOSE: 14.61 CTDIvol (mGy) MEDICAL HISTORY : Cardiovascular disease. Hypertension. Diabetes mellitus type 2. SURGICAL HISTORY : None. ENCOUNTER: Initial ACUITY: 1 day PAIN SCALE: 0/10 LOCATION: abdomen TECHNIQUE: Volumetric scanning of the abdomen and pelvis was performed. Using automated exposure control and ad justment of the mA and/or kV according to patient size, radiation dose was kept as low as reasonably achievable to obtain optimal diagnostic quality images. FINDINGS: LOWER LUNGS: Mild linear atelectasis within both lung bases. No effusions. LIVER: Homogeneous density without lesion. There is no dilation of the biliary tree. Multiple small partial ly calcified gallstones. SPLEEN: Normal size without lesion. PANCREAS: Within normal limits. KIDNEYS: Normal in size and shape. There is no mass, stone, or hydronephrosis. ADRENAL GLANDS: Within normal limits. VASCULAR: There is no aortic aneurysm. BOWEL/MESENTERY: There is a 4.8 cm soft tissue density involving the ascending colon. This is just cephalad to the ile ocecal valve. Surrounding mesenteric fat is clear. Appendix is normal. Small bowel and stomach are no rmal. No free air or free fluid. ABDOMINAL WALL: Within normal limits. RETROPERITONEUM: There is no lymphadenopathy. BLADDER: No wall thickening or mass. REPRODUCTIVE: Within normal limits. INGUINAL: There is no lymphadenopathy or hernia. MUSCULOSKELETAL: Within normal limits for patient age. CONCLUSION: 1. No ascites. 2. 4.8 cm soft tissue like structure involving the ascending colon. Differential diagnostic considera tions include a true mucosal mass versus a stool ball. 3. Cholelithiasis. Migue Graves Jr., MD on August 09, 2016 at 17:49 Board Certified Radiologist. This report was verified electronically.
[2016-08-09] MEDS: INSULIN DETEMIR 100 UNITS/ML VIAL SQ SCH (21:56)
[2016-08-09] MEDS: POTASSIUM CHLORIDE 10 MEQ CONTROLLED RELEASE TAB PO SCH (22:00)
[2016-08-10] VITALS: BP 159/89; PULSE 70; RESP 17; TEMP 97; O2SAT 99
[2016-08-10 04:00] VITALS: BP 173/88; PULSE 74; RESP 16; TEMP 97.4; O2SAT 100
[2016-08-10] MEDS: hydrALAZINE HCL 25 MG TAB PO SCH ×2 (06:00→13:49)
[2016-08-10 06:14] LABS: BICARBONATE 26.6 MEQ/L (21.0-32.0); POTASSIUM 3.6 MEQ/L (3.5-5.1)
[2016-08-10] MEDS: MEDIUM DOSE INSULIN NOVOLOG SUPPLEMENTAL SCALE SQ SCH ×2 (07:00→11:18)
[2016-08-10 08:00] VITALS: BP 159/83; PULSE 76; RESP 18; TEMP 97.6; O2SAT 100
[2016-08-10] MEDS: METOPROLOL TARTRATE 100 MG TAB PO SCH (08:43)
[2016-08-10] MEDS: SPIRONOLACTONE 25 MG TAB PO SCH (08:44)
[2016-08-10] MEDS: PANTOPRAZOLE SOD 40 MG DELAYED RELEASE TAB PO SCH (08:44)
[2016-08-10] MEDS: glyBURIDE 5 MG TAB PO SCH (08:44)
[2016-08-10] MEDS: LISINOPRIL 20 MG TAB PO SCH (08:44)
[2016-08-10] MEDS: DOCUSATE SODIUM 100 MG CAP PO SCH (08:44)
[2016-08-10] MEDS: SODIUM CHLORIDE 0.9% FLUSH 10 ML FLUSH IV FLUSH SCH (08:45)
[2016-08-10] MEDS: HEPARIN SODIUM - SQ 10,000 UNITS/ML VIAL SQ SCH (08:45)
[2016-08-10] MEDS: POTASSIUM CHLORIDE 10 MEQ CONTROLLED RELEASE TAB PO SCH (08:45)
--- NOTE | 2016-08-10 08:45 | HHI.NPPN ---
Subjective History of Present Illness 65 year old BF with Hypokalemia HTN.DM, CKD Review of Systems General Constitutional: Fatigue Objective Data Data 08/09/16 08/10/16 19:00 07:00 Intake Total 1947 ml 720 ml Balance 1947 ml 720 ml Intake Oral 990 ml 720 ml IV Total 957 ml # Voids 3 5 # Bowel Movements 1 Vital Signs Date Time Temp Pulse Resp B/P Pulse Ox O2 Delivery O2 Flow Rate FiO2 08/10/16 04:00 97.4 74 16 173/88 100 08/10/16 00:00 97.0 70 17 159/89 99 08/09/16 19:45 97.2 71 16 111/58 96 08/09/16 17:26 72 08/09/16 16:30 96.3 69 18 129/70 98 08/09/16 12:30 97.1 76 16 129/70 99 08/09/16 12:25 97.2 69 16 130/70 97 -: 08/07/16 0600 08/10/16 0442 Physical Exam General Appearance: Well Developed, Well Nourished Neck Neck Exam: Neck Supple Pulmonary Resp Exam: Clear Bilaterally, Breath Sounds Equal Cardiology CV Exam: Regular, Normal Sinus Rhythm Gastrointestinal/Abdomen GI Exam: Soft, Non-Tender Integumentary Skin Exam: Clear Extremeties Extremities Exam: No Edema Neurologic Neuro Exam: Alert Assessment/Plan Problem List: (1) Hypokalemia Plan: This likely was result of Thiazide diuretic no evidence of Adrenal Hyperplasia/functional adenoma/Ascites per CT scan urine K now normal range K improved with Aldactone screening for Hyperaldosteronism can be followed as out pt soft density in colon likely stools as constipated she may follow with GI as out pt OK to discharge from Nephrology point of view (2) CKD (chronic kidney disease) stage 3, GFR 30-59 ml/min Plan: US Kidneys done no obstruction (3) Diabetes Plan: monitor BG (4) Labile essential hypertension Plan: on spironolactone Problem Qualifiers (1) Diabetes: Rosie De León MD August 10, 2016 08:45
[2016-08-10 12:00] VITALS: BP 150/80; PULSE 71; RESP 18; TEMP 97.8; O2SAT 99
--- NOTE | 2016-08-10 13:40 | HHI.PR ---
Subjective Subjective Remarks had 2 large bm voiding okay no cp no abd pain, no n/v no sob eating okay peripheral neuropathy pain to legs no fever Review of Systems Constitutional Constitutional Remarks 12 point ROS completed, negative except as noted above Vitals/Results Intake & Output 08/09/16 08/09/16 08/10/16 15:00 23:00 07:00 Intake Total 990 ml 1437 ml 240 ml Balance 990 ml 1437 ml 240 ml Intake Oral 990 ml 480 ml 240 ml IV Total 957 ml # Voids 3 2 3 # Bowel Movements 0 1 Vital Signs Vital Signs Date Time Temp Pulse Resp B/P Pulse Ox O2 Delivery O2 Flow Rate FiO2 08/10/16 12:00 97.8 71 18 150/80 99 08/10/16 08:00 97.6 76 18 159/83 100 08/10/16 04:00 97.4 74 16 173/88 100 08/10/16 00:00 97.0 70 17 159/89 99 08/09/16 19:45 97.2 71 16 111/58 96 08/09/16 17:26 72 08/09/16 16:30 96.3 69 18 129/70 98 CBC/BMP: 08/07/16 0600 08/10/16 0442 Lab Results Laboratory Tests Test 08/09/16 08/10/16 14:38 04:42 Potassium Level 4.3 MEQ/L 3.6 MEQ/L Sodium Level 140 MEQ/L Chloride Level 105 MEQ/L Carbon Dioxide Level 26.6 MEQ/L Anion Gap 8 MEQ/L Blood Urea Nitrogen 23 MG/DL Creatinine 1.57 MG/DL Estimat Glomerular Filtration 40 ML/MIN Rate Random Glucose 88 MG/DL Calcium Level 9.1 MG/DL Physical Exam General General Appearance: Well Developed, Well Nourished Eyes Eye Exam: Pupils Equal, Pupils Reactive Ears & Nose Ears & Nose Exam: Nasal Mucosa [place] Throat Throat Exam: Oral Mucosa [place] & Moist Neck Neck Exam: Neck Supple Pulmonary Resp Exam: Clear Bilaterally, Breath Sounds Equal Cardiology CV Exam: Regular, Normal Sinus Rhythm Gastrointestinal/Abdomen GI Exam: Soft, Non-Tender, Bowel Sounds Present, Non-Distended Musculoskeletal MS Exam: Joints Intact Integumentary Skin Exam: Clear Extremeties Extremities Exam: No Edema, Pedal Pulses Palpable Neurologic Neuro Exam: Alert, Awake, Oriented, Speech Clear, Moving All Extremities, No Focal Deficits Psychiatric Psych Exam: Appropriate Responses VTE Prophylaxis VTE Prophylaxis Meds: Heparin Assessment/Plan Assessment/Plan 1. Hyperglycemia. 2. Hypokalemia. 3. Chronic kidney disease stage III. 4. Hypertension. 5. Hyperlipidemia. 6. Neuropathy. 7. History of insulin-dependent diabetes mellitus. PLAN: hypokalemia, resolved nephrology input appreciated, work up in progress Likely was result of Thiazide diuretic no evidence of Adrenal Hyperplasia/ functional adenoma/Ascites per CT scan negative K improved with Aldactone screening for Hyperaldosteronism can be followed as out pt CT abd. done, results noted-soft density in colon likely stools had large BM OK to discharge from Nephrology point of view Diabetes mellitus type 2, discussed need for compliance FSBG qac/hs. Lantus/SSI. Hypertension systolic uncontrolled, now improved Continue clonidine 0.2 by mouth when necessary. Chronic kidney disease stage III, appreciate nephrology input renal function improved Small right kidney noted on ultrasound. GI prophylaxis with proton pump inhibitor. DVT prophylaxis with heparin. Plan to discharge today F/U nephrology, PCP Diet-heart healthy Activity-as tolerated Discussed with RN Discussed with patient Discussed with Dr. Carcamo This patient seen by myself and Dr. Carcamo, this note is written on his behalf Discharge Minutes: 45 Gabriela Tierney August 10, 2016 13:39
[2016-08-10] MEDS ORDERED: Spironolactone PO (13:44)
[2016-08-10] MEDS ORDERED: LANTUS2P SQ (13:44)
[2016-08-10] MEDS ORDERED: NOVOLOGP2 SQ (13:44)
--- NOTE | 2016-08-10 13:45 | HHI.DCPOC ---
Discharge Care Plan Diagnosis: (1) Hypokalemia (2) Diabetes (3) CKD (chronic kidney disease) stage 3, GFR 30-59 ml/min (4) Labile essential hypertension Your Health Problems Are: Anxiety Goals to Promote Your Health * To prevent worsening of your condition and complications * To maintain your health at the optimal level Directions to Meet Your Goals Take your medications as prescribed Follow your dietary instruction Follow activity as directed Keep your appointments as scheduled Take your immunizations and boosters as scheduled If your symptoms worsen call your PCP, if no PCP go to Urgent Care Center or Emergency Room Smoking is Dangerous to Your Health. Avoid second hand smoke Call the 24-hour hour crisis hotline for domestic abuse at Gabriela Tierney. [facility] August 10, 2016 13:44
[2016-08-10] MEDS ORDERED: HYDR25TA35 PO (14:06)
[2016-08-10] MEDS ORDERED: GLYB5TAB3 PO (14:42)
[2016-08-10] MEDS ORDERED: LISI40TA PO (14:50)
--- NOTE | 2016-08-11 14:55 | HHI.DS ---
Discharge Summary Admission Date Aug 06, 2016 at 10:30 Discharge Date: August 10, 2016 Admitting Diagnosis Hypokalemia, uncontrolled DM (1) Hypokalemia (2) Diabetes (3) CKD (chronic kidney disease) stage 3, GFR 30-59 ml/min (4) Labile essential hypertension CBC/BMP: 08/07/16 0600 08/10/16 0442 Significant Findings Laboratory Tests Test 08/08/16 08/09/16 08/10/16 18:20 07:57 04:42 Potassium Level 2.8 MEQ/L 2.6 MEQ/L (3.5-5.1) (3.5-5.1) Blood Urea Nitrogen 25 MG/DL (7-18) 23 MG/DL (7-18) Creatinine 1.79 MG/DL 1.57 MG/DL (0.50-1.00) (0.50-1.00) Estimat Glomerular Filtration 34 ML/MIN (>89) 40 ML/MIN (>89) Rate Random Glucose 169 MG/DL (74-106) Imaging Last Impressions Abdomen/Pelvis CT 08/09/16 0000 Signed Impressions: Service Date/Time: Tuesday, August 09, 2016 17:36 - CONCLUSION: 1. No ascites. 2. 4.8 cm soft tissue like structure involving the ascending colon. Differential diagnostic considerations include a true mucosal mass versus a stool ball. 3. Cholelithiasis. Migue Graves Jr., MD Renal Ultrasound 08/08/16 0000 Signed Impressions: Service Date/Time: Monday, August 08, 2016 18:41 - CONCLUSION: 1. No evidence of obstructive uropathy or other acute abnormality. 2. Slightly small right kidney with patchy cortical thinning/scarring. Left kidney within normal limits. 3. Trace ascites, etiology uncertain. Jaden Monson MD Hospital Course The patient is a 65-year-old -[place] female with a known history of insulin-dependent diabetes mellitus who presents to the emergency room with complaints of elevated blood glucose. As per the patient, she has been travelling from [place] and she left her insulin at her daughter's home and she did not take her insulin today and when she checked her glucose at home, it was 480 so she presented to the emergency room. The patient denied any fever, any chest pain, no shortness of breath, nausea or vomiting or diarrhea. No abdominal pain. No focal weakness or numbness. In the emergency room, the labs done showed a potassium of 2.4 and a random blood glucose of 314. Because of her low potassium, the patient was admitted for further evaluation and management. DIAGNOSTIC STUDIES: Labs done showed a white blood cell count of 7.4, hemoglobin 14.5, hematocrit 41.2, platelets are 231,000. The urinalysis is clear. Sodium is 136, potassium 2.4, chloride is 92, bicarbonate is 36.1, BUN 18, creatinine 1.92, random blood glucose is 314. Pt. admitted for: 1. Hyperglycemia. 2. Hypokalemia. 3. Chronic kidney disease stage III. 4. Hypertension. 5. Hyperlipidemia. 6. Neuropathy. 7. History of insulin-dependent diabetes mellitus. During the course of the hospitalization, the following took place: Pt. admitted. Put on telemetry. K replacement was given. Put on accuchecks, insulin eventually restarted when K stabilized Continue the home medications as appropriate. GI prophylaxis with proton pump inhibitor. DVT prophylaxis with heparin. Nephrology consulted due to persistent hypokalemia nephrology input appreciated, work up in progress Likely was result of Thiazide diuretic no evidence of Adrenal Hyperplasia/ functional adenoma/Ascites per CT scan negative K improved with Aldactone screening for Hyperaldosteronism can be followed as out pt CT abd. done, results noted-soft density in colon likely stools had large BM recommended to follow up with GI as outpatient OK to discharge from Nephrology point of view Diabetes mellitus type 2, discussed need for compliance FSBG qac/hs. Lantus/SSI. gave rx to pt. Hypertension systolic uncontrolled, did improved Continued clonidine 0.2 by mouth when necessary. Chronic kidney disease stage III, appreciate nephrology input renal function improved Small right kidney noted on ultrasound. GI prophylaxis with proton pump inhibitor. DVT prophylaxis with heparin. Pt. stabilized, electrolytes stable Instructed to: F/U nephrology, PCP Diet-heart healthy Activity-as tolerated Pt Condition on Discharge: Stable Discharge Disposition: Discharge Home Discharge Instructions DIET: Follow Instructions for: Heart Healthy Diet, Diabetic Diet Activities you can perform: Weight Bearing as Idris Follow up Referrals: Nephrology with [facility] PCP Follow-up New Medications: Glyburide (Glyburide) 5 Mg Tab 10 MG PO BID Take with meals at the same time each day Blood Sugar Management # 120 Ref 0 TAB Lisinopril (Lisinopril) 40 Mg Tab 40 MG PO DAILY Blood Pressure Management #30 Ref 0 TAB Hydralazine (Hydralazine) 25 Mg Tab 25 MG PO Q8HR Blood Pressure Management #90 Ref 1 TAB ([Spironolactone]) 25 MG TAB 25 MG PO DAILY FLUID REMOVAL #30 Ref 1 TAB Continued Medications: Amlodipine (Amlodipine) 10 Mg Tab 10 MG PO DAILY Blood Pressure Management #30 Ref 0 TAB Gabapentin (Gabapentin) 300 Mg Cap 300 MG PO QID #90 Ref 0 CAP Glyburide (Glyburide) 5 Mg Tab 10 MG PO BID Take with meals at the same time each day Blood Sugar Management # 120 Ref 0 TAB Insulin Aspart Inj (Novolog Inj) 1,000 Unit/10 Ml Vial 0 SQ DIRECTED Sliding Scale as directed. Blood Sugar Management #10 Ref 0 ML (This prescription has been renewed) Insulin Glargine Inj (Lantus Inj) 1,000 Unit/10 Ml Vial 30 UNITS SQ HS Blood Sugar Management #1 Ref 0 VIAL (This prescription has been renewed) Isosorbide Mononitrate ER (Isosorbide Mononitrate ER) 60 Mg Tab 60 MG PO DAILY Prevent Chest Pain #30 Ref 0 TAB Metoprolol Tartrate (Metoprolol Tartrate) 100 Mg Tab 200 MG PO DAILY #30 Ref 0 TAB Discontinued Medications: Hydrochlorothiazide (Hydrochlorothiazide) 25 Mg Tab 25 MG PO DAILY #30 Ref 0 TAB Lisinopril (Lisinopril) 20 Mg Tab 20 MG PO DAILY #30 Ref 0 TAB Metoprolol Succinate ER 24 HR (Metoprolol Succinate ER 24 HR) 200 Mg Tab 200 MG PO DAILY #30 Ref 0 TAB Gabriela Tierney August 11, 2016 14:55
== END 2016-08-10 15:54 | disposition home or self-care (01) | DRG 638 ==
LOC: NEPC 21:35 → NEDA 08-06 05:18 → NEPFCDU 08-06 08:11 → OBSVTOIN 08-06 10:30 → N06A 08-08 19:09
PROVIDERS: ADMIT Family Medicine; ATTEND Family Medicine
DX: E11.65 Type 2 diabetes mellitus with hyperglycemia (principal); E87.3 Alkalosis; E11.22 Type 2 diabetes mellitus with diabetic chronic kidney disease; E87.6 Hypokalemia; N18.3 Chronic kidney disease, stage 3 (moderate); E11.40 Type 2 diabetes mellitus with diabetic neuropathy, unspecified; E26.9 Hyperaldosteronism, unspecified; I12.9 Hypertensive chronic kidney disease with stage 1 through stage 4 chronic kidney disease, or unspecified chronic kidney disease; E78.5 Hyperlipidemia, unspecified; Z79.4 Long term (current) use of insulin
CPT/HCPCS: 74176; 76775; 80048; 81001; 82010; 82088; 82436; 82533; 82805; 82948; 83735; 83835; 84132; 84133; 84244; 84300; 85025; 96361; 96365; 96366; 96375; J0360; J1644; J1815; J3475; J3480; J7030; Q9963